=== PATIENT | male | born 2000 | race Caucasian/White ===

== ENCOUNTER 2021-08-21 18:00 | Emergency (ER) | payer OTHER ==
[~2021-08-21] VITALS: Ht 165.1 cm; Wt 93.2 kg
[2021-08-21 18:43] VITALS: BP 147/90
[2021-08-21] MEDS ORDERED: azithromycin 250mg tablet PO ONE (20:30)
[2021-08-21] MEDS ORDERED: AZIT200S47 PO (20:45)
== END 2021-08-21 20:54 | disposition home or self-care (01) ==
LOC: ER 18:01
DX: J03.90 Acute tonsillitis, unspecified (principal); J04.0 Acute laryngitis; R50.9 Fever, unspecified; F17.200 Nicotine dependence, unspecified, uncomplicated; Z88.0 Allergy status to penicillin; Z79.2 Long term (current) use of antibiotics
CPT/HCPCS: 87880; 99283

== ENCOUNTER 2024-11-12 13:02 | Emergency (ER) | payer MEDICAID, OTHER ==
[~2024-11-12] VITALS: Ht 167.6 cm; Wt 94.8 kg
[2024-11-12 13:07] VITALS: BP 157/75; PULSE 85; TEMP 98; O2SAT 97
--- NOTE | 2024-11-12 13:11 | Physician Documentation ---
History of Present Illness ~ Chief Complaint: Bite-animal Stated Complaint: DOG BITE Time Seen by MD: 13:41 Primary Medical Doctor: FRANK BASS 24-year-old male presents to the ED after incurring a dog bite in his left wrist just prior to arrival. Patient states he has had prior scaphoid fracture with surgery to the left wrist years ago. Patient presents today with puncture wounds from the dogs canines to his left wrist which is what brought him in today. Patient denies any numbness or tingling and has no other concern or complaint at this time. Tetanus within 5 years?: Yes Medication Reconciliation Allergies: Coded Allergies: Penicillins (Verified Allergy, Unknown, 08/21/21) Scheduled Doxycycline Monohydrate (Doxycycline Monohydrate), 1 CAP PO Q12H Review of Systems Constitutional: Denies: chills, fever, weakness Eyes: Denies: pain, blurred vision ENT: Denies: ear pain, nose pain, throat pain, mouth pain Respiratory: Denies: cough, shortness of breath Cardiovascular: Denies: chest pain, palpitations Gastrointestinal: Denies: abdominal pain, nausea, vomiting Genitourinary: Denies: burning, dysuria Male Genitalia: Denies: penile discharge, testicular pain Neurological: Denies: headache, dizziness Musculoskeletal: Denies: pain, swelling Integumentary: Denies: rash, lesions Allergic/Immunologic: Denies: hives, itching Hematologic/Lymphatic: Denies: no symptoms reported Psychiatric: Denies: depression, anxiety Physical Exam Vital Signs: Temperature: 98.0, Source: Temporal, Heart Rate: 85, Respiratory Rate: 16, BP: 157/75, Pulse Oximetry: 97, Weight: 94.800 Oxygen Flow Rate: 0 Physical Exam General: Awake and Alert, no acute distress. HEENT: Conjunctiva pink, Sclera clear, Mucus Membranes moist. Neck: Supple without masses and tenderness. Resp: Unlabored. Lungs clear to auscultation bilaterally. Heart: Regular Rate and rhythm, normal S1 and S2 without murmur, rub or gallop. Musculoskeletal: Patient on exam does have two small laceration/puncture wounds each measuring approximately seven mm in diameter one on the ulnar and another on the radial aspect of the left wrist distally just proximal to the radiocarpal joint. Patient has decent range of motion of the left wrist. He has swelling of the left wrist without any sign of erythema or purulent drainage. Patient is neurovascularly intact distally. Motor function and strength intact distally. Extremities: No cyanosis,clubbing or edema. Skin: Warm and Dry. Progress Results/Orders Results/Orders Orders - SONU OROZCO Wrist, Complete (3vw Min) (11/12/24 15:12) Completed Orders - SONU OROZCO PAC Wrist, Complete (3vw Min) (11/12/24 15:12) Doxycycline 100mg Capsule (Vibramycin 10 (11/12/24 15:16) Medications Received in ER Medications (Trade) Dose Ordered Sig/Oscar Route PRN Reason Start Time Stop Time Status Last Admin Dose Admin (VIBRAMYCIN 100mg capsule) 100 mg ONCE STAT PO 11/12/24 15:16 11/12/24 15:19 DC 11/12/24 15:28 100 MG Vital Signs 11/12/24 11/12/24 13:07 15:44 Temp 98.0 Pulse 85 Resp 16 16 B/P (MAP) 157/75 Pulse Ox 97 O2 Flow Rate 0 EKG/XRAY/CT/US/VASC/MRI Bone/Soft Tissue X-Ray (Ext.) : Additional Comment X-ray of the left wrist interpreted by myself today shows no sign of acute fracture, patient does have chronic appearing changes of the distal pole of the scaphoid. DIAGNOSTIC RADIOLOGY Patient: JORDYN LUIS Medical Record: [id number] [facility] : 2000, Age: 24 Sex: Male Location: ER Patient Status: [facility] ER Service Date/Time: 11/12/241511 Ordering Physician: SONU OROZCO Exam: WRIST, COMPLETE (3VW MIN) EXAM: DI WRIST, COMPLETE (3VW MIN) INDICATION: left wrist injury TECHNIQUE: 3 views of the left wrist COMPARISON: None FINDINGS/IMPRESSION: No radiographic evidence of an acute osseous abnormality. There is no acute fracture, osseous malalignment, or aggressive focal osseous lesion. Trace radiopaque densities along the volar aspect of the soft tissues of the distal wrist. Slight deformity of the distal pole of the scaphoid which may be related to underlying prior injury. Mild degenerative change of the 1st carpometacarpal joint Electronically Signed by:URSULA LYLES MD Date & Time: 11/12/24 1541 Dictated by: URSULA LYLES MD Dictation date and time: 11/12/24 1525 Primary Care Provider: NO PRIMARY CARE PROVIDER cc: SONU OROZCO ~ Medical Decision Making Findings 24-year-old male presents to the ED after incurring a dog bite in his left wrist just prior to arrival. Patient states he has had prior scaphoid fracture with surgery to the left wrist years ago. Patient presents today with puncture wounds from the dogs canines to his left wrist which is what brought him in today. Patient denies any numbness or tingling and has no other concern or complaint at this time. Patient did have x-ray of left wrist that showed no sign of acute fracture. Patient was started on doxycycline 100 mg one tab twice a day and prescription was sent to patient's pharmacy to continue for five more days. Patient will return to ED with any worsening, concerning or changing symptoms. Departure Disposition: HOME / SELF CARE / HOMELESS Impression: Primary Impression: Dog bite Qualified Codes: W54.0XXA - Bitten by dog, initial encounter Additional Impressions: Puncture wound Laceration Condition: Improved Additional Instructions: Patient did have x-ray of left wrist that showed no sign of acute fracture. Patient was started on doxycycline 100 mg one tab twice a day and prescription was sent to patient's pharmacy to continue for five more days. Patient will return to ED with any worsening, concerning or changing symptoms. Departure Forms: Excuse form Work or School Excused From: Work Excuse beginning now through the following date: Nov 15, 2024 Referrals: NO PRIMARY CARE PROVIDER (PCP) Prescriptions Doxycycline Monohydrate (Doxycycline Monohydrate) 100 Mg Capsule 1 CAP PO Q12H for 7 Days, #14 CAP Prov: SONU OROZCO 11/12/24 Signature Scribe Signature: No scribe Attestation: No HARLEEN Lewis ELECTRICAL ESTIMATOR Nov 12, 2024 13:11 SONU OROCZO PAC Nov 12, 2024 15:47
[2024-11-12] MEDS: DOXYCYCLINE 100MG CAPSULE PO STA (15:28)
--- NOTE | 2024-11-12 15:43 | RADIOLOGY REPORT ---
EXAM: DI WRIST, COMPLETE (3VW MIN) INDICATION: left wrist injury TECHNIQUE: 3 views of the left wrist COMPARISON: None FINDINGS/IMPRESSION: No radiographic evidence of an acute osseous abnormality. There is no acute fracture, osseous malalignment, or aggressive focal osseous lesion. Trace radiopaque densities along the volar aspect of the soft tissues of the distal wrist. Slight deformity of the distal pole of the scaphoid which may be related to underlying prior injury. Mild degenerative change of the 1st carpometacarpal joint
[2024-11-12 15:44] VITALS: RESP 16
[2024-11-12] MEDS ORDERED: DOXY-460 PO (15:49)
== END 2024-11-12 16:00 | disposition home or self-care (01) ==
LOC: ER 13:03
DX: S61.512A Laceration without foreign body of left wrist, initial encounter (principal); W54.0XXA Bitten by dog, initial encounter; Y93.89 Activity, other specified; Y92.89 Other specified places as the place of occurrence of the external cause; Y99.8 Other external cause status; Z88.0 Allergy status to penicillin
CPT/HCPCS: 73110; 99283; A6258; A6446

== ENCOUNTER 2025-01-11 00:16 | Emergency (ER) | payer SELFPAY ==
[~2025-01-11] VITALS: Ht 167.6 cm; Wt 110.0 kg
--- NOTE | 2025-01-11 00:26 | Physician Documentation ---
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 The patient states he had progressive worsening of his pain he states the the initial injury was at 6:00 p.m. yesterday in his pain worsened to about 8/10. Patient states he has some worsening pain in the back when he moves his right leg. He states his symptoms are moderate and persistent. Patient denies any history of significant back pain Medication Reconciliation Allergies: Coded Allergies: Penicillins (Verified Allergy, Unknown, 01/11/25) Scheduled Cyclobenzaprine* (Cyclobenzaprine*), 1 TAB PO Q8H Review of Systems All Other Systems at this time: Reviewed and Negative Physical Exam Physical Exam Vital Signs: Heart Rate: 75, Respiratory Rate: 18, BP: 141/76, Pulse Oximetry: 97, Weight: 110.000 Physical Exam VITALS: Reviewed and as above. GENERAL: Alert, no apparent distress. HEENT: Normocephalic, atraumatic, PERRL, EOMI, dry mucosa, no erythema RESPIRATORY: Lungs clear, normal breath sounds, no respiratory distress. CHEST: No accessory muscle use, no retractions CV: Regular rate, rhythm, no edema, no murmur, No: JVD GI: Soft, non-tender, bowels sounds present, no rebound, guarding, or rigidity BACK: Tender L4-L5 paraspinous muscles bilaterally no significant midline tenderness or deformity the patient has 5/5 strength bilaterally lower extremities MUSCULOSKELETAL: No deformities, no edema SKIN: Warm and dry, no rash NEURO: Oriented x4, No motor or sensory deficit PSYCH: Normal mood and affect, no agitation Progress Results/Orders Results/Orders Completed Orders - OHLNAGA CUNNINGHAM MD Ketorolac Trometh 15mg/Ml Vial (Toradol (01/11/25 01:20) Orphenadrine Citrate Inj. (Norflex Inj.) (01/11/25 01:20) Vital Signs 01/11/25 01/11/25 01/11/25 01/11/25 00:18 02:00 02:20 04:25 Pulse 75 60 55 Resp 18 16 14 12 B/P (MAP) 141/76 122/56 (78) 102/62 (75) Pulse Ox 97 96 97 Medical Decision Making Additional information obtaine: old records Findings The patient was muscular skeletal back pain, the patient had no high-risk neurologic features he had no weakness, the patient had no trauma. The patient was given a dose of orphenadrine and Toradol with the improvement of symptoms he is able to ambulate in the emergency department. Prior hospitalizations has been reviewed the patient's pulse oximetry was interpreted as normal and adequate. The patient will be given a prescription for Flexeril and advised to use ibuprofen for pain the patient will be discharged. Differential Diagnosis Musculoskeletal back pain, kidney stone, shingles Departure Disposition: HOME / SELF CARE / HOMELESS Impression: Primary Impression: Low back pain Qualified Codes: M54.50 - Low back pain, unspecified Discharge Instructions: Acute Back Pain, Adult Referrals: NO PRIMARY CARE PROVIDER (PCP) Prescriptions Cyclobenzaprine* (Cyclobenzaprine*) 10 Mg Tablet 1 TAB PO Q8H for muscle spasms for 10 Days, #30 TAB 0 Refills Prov: NAGA SOLER MD 01/11/25 Signature Scribe Signature: No scribe Attestation: The note accurately reflects work and decisions made by me.Naga Soler MD 01/12/25 04:30 NAGA SOLER MD Jan 11, 2025 00:26
[2025-01-11] MEDS: ketorolac trometh 15mg/ml vial 15 MG/ML ML IM ONE (02:20)
[2025-01-11] MEDS: orphenadrine citrate 60mg/2ml inj. IM ONE (02:20)
[2025-01-11] MEDS ORDERED: CYCL-1 PO (02:40)
[2025-01-11 04:25] VITALS: BP 102/62; PULSE 55; RESP 12; O2SAT 97
== END 2025-01-11 04:40 | disposition home or self-care (01) ==
LOC: ER 00:17
DX: M54.50 Low back pain, unspecified (principal); Z88.0 Allergy status to penicillin
CPT/HCPCS: 96372; 99284; J1885; J2360